=== PATIENT | male | born 1965 | race Two or more races ===

== ENCOUNTER 2024-06-08 21:16 | Emergency (ER) | payer SELFPAY ==
[~2024-06-08] VITALS: Ht 177.8 cm; Wt 90.9 kg
[~2024-06-08 21:16] MED LIST: HIGH CHOL MED; PRILOSEC; [UNRECOGNIZED DRUG - CODE] PO
[2024-06-08 22:23] LABS: BASOPHILS % (AUTO) 0.2 % (0.0-2.0); EOSINOPHILS % (AUTO) 0.5 % (1.0-6.0); HEMATOCRIT 43.9 % (41-53); HEMOGLOBIN 14.9 g/dL (13.5-17.5); LYMPHOCYTES # (AUTO) 0.9 K/uL (1.0-4.8); LYMPHOCYTES % (AUTO) 4.8 % (22.0-44.0); MEAN CORPUSCULAR HEMOGLOBIN 30.6 pg (26.0-34.0); MEAN CORPUSCULAR VOLUME 90 fL (80-100); MONOCYTES # (AUTO) 1.3 K/uL (0.1-1.0); MONOCYTES % (AUTO) 7.3 % (2.0-9.0); NEUTROPHILS # (AUTO) 15.6 K/uL (1.8-7.7); PLATELET COUNT (AUTO) 305 K/uL (150-450); RED BLOOD CELL COUNT(AUTO) 4.88 MIL/uL (4.50-5.90); RED CELL DISTRIBUTION WIDTH 13.5 % (11.5-14.5); WHITE BLOOD COUNT (AUTO) 17.9 K/uL (4.5-11.0)
[2024-06-08] MEDS: KETOROLAC TROMETHAMINE 30 MG/ML VIAL IVP ONE (22:23)
[2024-06-08] MEDS: ACETAMINOPHEN 500 MG TABLET PO ONE (22:23)
[2024-06-08] MEDS: SODIUM CHLORIDE 0.9% 2,000 ML IV ONE (22:23)
[2024-06-08 22:26] LABS: ANION GAP 18 mmol/L (8-16); CARBON DIOXIDE 19 mmol/L (22-29); CHLORIDE 105 mmol/L (98-107); CREATININE 1.17 mg/dL (0.60-1.30); GLOMERULAR FILTR. RATE CALC > 60 mL/min (>60); GLUCOSE,RANDOM 118 mg/dL (70-110); POTASSIUM 3.3 mmol/L (3.5-5.1); SODIUM SERUM 142 mmol/L (136-145); UREA NITROGEN, BLOOD 16 mg/dL (7-18)
[2024-06-08 22:27] LABS: NEUTROPHILS % (AUTO) 87.2 % (40.0-70.0)
[2024-06-08 22:28] LABS: LIPASE 43 U/L (16-77)
[2024-06-09 00:59] VITALS: BP 124/71; PULSE 85; RESP 18; TEMP 98.6; O2SAT 94
[2024-06-09] MEDS: PB/HYOSCY/ATR/SCOP/LIDO/MAALOX 55 ML BOTTLE PO ONE (01:04)
[2024-06-09 01:28] LABS: ALANINE AMINOTRANSFERASE 23 U/L (12-78); ALBUMIN 4.1 g/dL (3.4-5.0); ALKALINE PHOSPHATASE 104 U/L (46-116); ASPARTATE AMINOTRANSFERASE 24 U/L (15-37); BILIRUBIN,TOTAL 1.1 mg/dL (0.1-1.0); TOTAL PROTEIN, SERUM 7.5 g/dL (6.4-8.2); TROPONIN I-HIGH SENSITIVITY 4 ng/L (<76)
[2024-06-09] MEDS: CefTRIAXone 1 GM/DEXTROSE 50 ML IV ONE (02:03)
[2024-06-09] MEDS: OMEPRAZOLE 20 MG CAPSULE PO ONE (02:03)
[2024-06-09] MEDS: HYDROCODONE/ACETAMINOPHEN 5-325 MG TABLET PO ONE (02:03)
[2024-06-09] MEDS ORDERED: HYDR-4062 PO (02:44)
[2024-06-09] MEDS ORDERED: MAG30ORA11 PO (02:44)
[2024-06-09] MEDS ORDERED: OMEP20 PO (02:44)
[2024-06-09] MEDS ORDERED: ONDA-104 PO (02:44)
== END 2024-06-09 03:21 | disposition home or self-care (01) ==
LOC: EMS 21:18
DX: J02.9 Acute pharyngitis, unspecified (principal); K21.9 Gastro-esophageal reflux disease without esophagitis; R10.13 Epigastric pain; E86.0 Dehydration; F20.9 Schizophrenia, unspecified; R11.2 Nausea with vomiting, unspecified
CPT/HCPCS: 99284; 96361; 96375; 80048; 80076; 83690; 84484; 85025; 36415; 96365; J1885; J7030; J0696